=== PATIENT | male | born 1995 | race Two or more races ===

== ENCOUNTER 2024-12-30 15:05 | Outpatient (CLI) | payer OTHER ==
[2024-12-30 15:42] LABS: Hematocrit 43.7 % (41.0-53.0); Hemoglobin 14.7 g/dL (13.5-17.5); Mean Corpuscular Hemoglobin 29.0 pg (28.0-32.0); Mean Corpuscular Volume 86.1 fL (80.0-100.0); Nucleated Red Blood Cells % 0.0 %
[2024-12-30 15:50] LABS: Urine Protein, UAD Negative (Negative)
[2024-12-30 16:02] LABS: Albumin 4.6 g/dL (3.2-4.8); Alkaline Phosphatase 61 U/L (46-116); Anion Gap 8 (5-15); BUN/Creatinine Ratio 7.8 (10.0-20.0); Calcium 9.9 mg/dL (8.7-10.4); Carbon Dioxide 29 mmol/L (20-31); Chloride 105 mmol/L (98-107); Glucose 86 mg/dL (74-106); Potassium 4.2 mmol/L (3.5-5.1); Sodium 142 mmol/L (136-145); Total Protein 7.5 g/dL (5.7-8.2)
[2024-12-30 16:03] LABS: Bilirubin, Total 0.6 mg/dL (0.2-1.0); INR 1.06 (0.9-1.15); Partial Thromboplastin Time 30.1 SEC (24.5-34.5); Prothrombin Time 11.2 sec (9.3-11.8)
[2024-12-30 16:04] LABS: Alanine Aminotransferase 100 U/L (7-40); Blood Urea Nitrogen 8 mg/dL (9-23)
== END 2024-12-30 17:00 | disposition home or self-care (01) ==
LOC: LAB 15:05
PROVIDERS: ATTEND Orthopaedic Surgery Adult Reconstructive Orthopaedic Surgery
DX: Z01.812 Encounter for preprocedural laboratory examination (principal)
CPT/HCPCS: 36415; 80053; 81001; 85025; 85610; 85730